=== PATIENT | male | born 1955 | race Caucasian/White ===

== ENCOUNTER 2021-03-12 00:14 | Observation (INO) | payer OTHER, SELFPAY ==
[2021-03-12] VITALS (12 sets, daily range): BP systolic 126–147; BP diastolic 64–92; PULSE 52–66; RESP 16–17; TEMP 36.3–36.8; O2SAT 91–96; BMI 33.3
[2021-03-12] MEDS: enoxaparin 40 mg/0.4 mL Syringe SUBCUT (00:51)
--- NOTE | 2021-03-12 02:09 | P.HP_ITS ---
Providers/Chief Complaint Admitting Physician: Jeanette Roberts MD Primary Care Provider: Dustin Foster Chief Complaint: dizziness History of Present Illness Rory Horner is a 65 year old male who originally presented to [facility] with sudden onset of dizziness around 4 PM. He works in a body shop. He had gotten up from doing some work and went to sit down. About 20 minutes after sitting down he had sudden onset of severe dizziness associated with nausea. He had no vomiting. He did report vision changes described as harder to see things but denied any double vision. He had some pain in the back of his neck at the time. It was not radiating anywhere else. He has had intermittent similar pain without the dizziness previously. Denied any headache. No diffic ulty speaking. Symptoms were better with his eyes closed. Any attempt to get up and walk however was challenging. He ended up calling his to come and get him because he did not think that he could drive his car. When she arrived he asked to come to the hospital because the symptoms were so severe. He has a history of a previous TIA back in 2009 that presented with similar symptoms and lasted about 12 hours. He chronically takes baby aspirin. He has a history of hypertension and tachycardia for which he is on beta-blockade. Denies any recent viral symptoms or upper respiratory/sinus symptoms. No reports of any chest pain. Has not had any difficulty breathing. NIH stroke scale on arrival to outside facility was 0. CT of the head without contrast was interpreted by radiology as no evidence of acute intracranial hemorrhage, no CT evidence of acute transcortical infarct however it did describe an area of low density in the right caudate nucleus that could represent an acute lacunar type infarction. Patient was seen by teleneurology at [facility]. Their interpretation was possible chronic lacunar infarct rather than acute. Records indicate a positive Jorge- Hallpike test and no focal neurological deficits. Recommendation was for MRI of brain without contrast. Attempts were made to transfer the patient to [facility] for MRI without success. Patient requested transfer here. Patient continued to be dizzy per ER physician. He had not received any treatment specifically for dizziness given concern for possible neurologic etiology with sudden onset of symptoms. Upon arrival here, patient symptoms have almost resolved although he continues to have mild degree of dizziness. No current vision changes. No other neurological symptoms to speak of. If he is lying down in bed or even moving around in bed he is okay at the moment. He denied any swallowing difficulties. He takes his amlodipine and atenolol chronically. States that he is on atenolol for chronic tachycardia. Does not recall having had issues with a low heart rate which have been noted here. His mother had a large stroke. He does not currently smoke. Review of Systems Const: Denies: fever(s) or chills Eyes: Reports: change in vision, blurry vision and other (not double vision); Denies: photophobia ENMT: Denies: throat pain or nasal congestion Card: Denies: chest pain, palpitations or edema Resp: Denies: dyspnea or productive cough GI: Denies: nausea, vomiting, diarrhea, constipation, hematochezia or melena : Reports: urinary hesitancy, change in urine stream (chronically slow stream, may be a bit worse than usual) and other (nocturia x 2) Musc: Reports: neck pain (transiently) Skin/Breast: Reports: sores (left arm from sql database developer, stitches recently removed); Denies: rash Neuro: Reports: lack of coordination, difficulty walking, dizziness and vertigo; Denies: headache(s), numbness in extremities, weakness in extremities, sensory changes, Slurred speech present or difficulty communicating thoughts Psych: Reports: anxiety John/Lymph: Denies: easy bruising or easy bleeding Medications/Allergies Home Medications Medication Instructions Recorded Confirmed Last Taken Type amlodipine 10 mg PO BEDTIME 03/12/21 03/12/21 03/10/21 22:00 History aspirin [Aspir-Low] 81 mg PO DAILY 03/12/21 03/12/21 03/10/21 22:00 History atenolol 50 mg PO BEDTIME 03/12/21 03/12/21 03/10/21 22:00 History citalopram 20 mg PO BEDTIME 03/12/21 03/12/21 03/10/21 22:00 History Allergies Allergy/AdvReac Type Severity Reaction Status Date / Time acetaminophen [From Tylenol] Allergy Unknown Verified 03/12/21 00:35 Additional Medication Information I personally reviewed home medication list. PFSH Acute PFSH: Medical History (Updated 03/12/21 @ 04:29 by Jeanette Roberts MD) Anxiety Hypertension Tachycardia specifics unknown, denies abnormal heart rhythm, just fast , chronically on atenolol Transient ischemic attack (TIA) 2009, about 12 hours of vertigo of sudden onset Surgical History (Updated 03/12/21 @ 04:09 by Jeanette Roberts MD) History of rotator cuff surgery x2 right History of urethrotomy or similar procedure when quite young, for slow urinary stream which remains chronic problem to a degree Hx of elbow surgery x2 left Family History (Updated 03/12/21 @ 04:05 by Jeanette Roberts MD) Mother Stroke Social History (Updated 03/12/21 @ 04:48 by Jeanette Roberts MD) Smoking and tobacco status: former smoker Quit status (tobacco): has quit using tobacco Year quit tobacco: 1982 Former quit date comment: used smokeless tobacco, never smoked Second hand smoke exposure: Yes Alcohol intake: never Substance/Drug Use: never Household members: spouse Marital status: Vitals/I&O/Wt Last Vital Signs Temp 97.7 F 03/12/21 00:37 Pulse 55 L 03/12/21 00:37 Resp 17 03/12/21 00:37 BP 147/92 03/12/21 00:37 Pulse Ox 92 03/12/21 00:37 Weight last 48 hrs Weight 108.363 kg Weight 108.363 kg Physical Exam Narrative: EXAM NARRATIVE: Constitutional: Awake and alert, oriented x3 HEENT: Normocephalic, atraumatic, pupils equally round and reactive to light, no photophobia, no nystagmus, moist mucous membranes Neck: Supple Respiratory: Clear to auscultation bilaterally without any rales rhonchi or wheezes noted Cardiovascular: Regular rate and rhythm Abdomen: Soft, nontender, distended, positive bowel sounds : Deferred Extremities: No pitting edema Skin: Scab over wound to left arm intact, no significant bruising noted Neuro: Face symmetric, speech clear, handgrip equal, mild dizziness with position change/head turn, no decreased areas of sensation detected, length equal both lower extremities, gait not currently assessed Psych: Normal affect Data Other data: Labs: From [facility] are as follows: White count 5.9, hemoglobin 14.6, platelet count 92 Sodium 139, potassium 3.7, chloride 102, CO2 27, BUN/creatinine 18/0.9, calcium 9.2, glucose 113, albumin 4.7, total bilirubin 0.5, alkaline phosphatase 83, AST 31, ALT 38, magnesium 2.1 Total cholesterol in a nonfasting specimen 130, triglycerides 242, HDL 33, LDL 49 [id number] blood sugar was 110 Urinalysis showed a specific gravity of 1.020, pH 6.5, negative leukocyte esterase and nitrites, negative protein, glucose, ketones Radiological studies: From [facility] are as follows: Chest x-ray with no acute cardiopulmonary abnormality CT of the head without contrast showed ventricles and subarachnoid spaces normal in size and configuration. There is no midline shift or mass-effect. No evidence of acute intracranial hemorrhage or extra-axial fluid collection. Age indeterminate possibly acute small lacunar type infarct of the right caudate nucleus was noted. Rosa-white matter interfaces were maintained without CT evidence of acute transcortical infarction. Basilar cisterns were patent. Mastoid air cells were well aerated and visualized paranasal sinuses were well aerated. EKG: From [facility] showed normal sinus rhythm at 61 bpm without any acute ST segment or T wave changes noted per my personal interpretation Prior or outside records reviewed: Facility records were reviewed in full including teleneurology telestroke phone consultation where Dr. Parmjit Mcnamara recommended an MRI of the brain without contrast for this patient. A&P Assessment and plan (1) TIA (transient ischemic attack): Current working diagnosis based on history and sudden onset of symptoms combined with abnormalities on imaging thus far. Patient was seen by teleneurology at outside facility who requested further radiological evaluation with MR. Status: Acute (2) Vertigo: Outside records indicate positive Salem-Hallpike maneuver which could go along with benign vertigo process. The sudden onset of symptoms not associated directly with position changes however is concerned. Last time he had similar symptoms it was felt to be neurologic in nature back in 2009. He has not received any focused treatment for vertiginous symptoms including no fluids, no meclizine, no benzodiazepines or steroids at outside facility. Status: Acute (3) Bradycardia: Is chronically on atenolol 50 mg taken at bedtime. He did not have a dose this evening. No recent change to dosages. Is on atenolol due to a history of tachycardia, other details regarding tachycardia not known. Status: Acute (4) Hypertension: Chronically on amlodipine in addition to the atenolol he takes Status: Chronic Qualifiers: Hypertension type: essential hypertension Qualified Code(s): I10 - Essential (primary) hypertension (5) Anxiety: Chronically on citalopram Status: Chronic Additional A&P Information Low platelets on outside labs Observation admission Continue serial neuro exams IV fluids Check orthostatic vital signs Hold home amlodipine currently to allow for permissive hypertension in the event that this is determined to be more vascular in nature Currently hold and plan to decrease home atenolol (from 50 mg to 25 mg daily) secondary to bradycardia Telemetry MRI as recommended by neurology and will go on and also get MRA of the head Will provide Xanax 0.5 mg p.o. x1 dose 30 minutes prior to procedure Check carotid ultrasound and echocardiogram Recheck platelets and get INR For now continue aspirin therapy, consider additional antiplatelet therapy upon discharge pending results of above PT and OT evaluations Regular consistency diet as no abnormalities on bedside swallowing exam IVFs times one liter Continue home citalopram DVT prophylaxis: lovenox Plans, findings and concerns discussed with patient and he was given an opportunity to ask questions. Anticipated Disposition: home Code Status: full Attestations Medical Necessity Statement*: Currently anticipate a stay less than two midnights in a patient presenting with acute onset vertigo/dizziness with an abnormal noncontrasted CT of the head. He does have some bradycardia and elevation in specific gravity. Symptoms could be indicative of benign vertigo but he has a prior history of TIA symptoms presenting similarly, known history of hypertension and an unclear tachycardia history for which she has been treated with beta-blockade along with a family history of stroke in his mother. Other issues and plans as noted above. Merits further evaluation acutely as indicated. Coding Level of Care Code Acute Pl[employer] Frame Inserter for Dayan Fang Diagnoses TIA (transient ischemic attack) G45.9 Vertigo R42 Bradycardia R00.1 Hypertension I10 Hypertension type: essential hypertension Anxiety F41.9
[2021-03-12] MEDS: aspirin 81 mg EC Tablet PO (04:08)
[2021-03-12] MEDS: citalopram 20 mg Tablet PO (04:08)
--- NOTE | 2021-03-12 04:24 | PC.NURSE ---
preformed bedside swallow test - no noted trouble swallowing, no delayed cough, no drooling. After test, pt swallowed whole pills with none of the above issues.
[2021-03-12] MEDS: sodium chlor 0.9% + KCl 20 mEq 20 MEQ/1,000 ML BAG 75 MEQ IV (05:02)
[2021-03-12 05:43] LABS: Basophils % 0.4 %; Eosinophils % 0.5 %; Hematocrit 42.5 % (42.0-52.0); Hemoglobin 14.4 g/dL (11.7-16.6); Lymphocytes # 1.8 10^3/uL (0.8-4.8); Lymphocytes % 32.3 %; Mean Corpuscular HGB Conc 33.9 g/dL (30.0-36.0); Mean Corpuscular Volume 97.5 fL (80-94); Mean Platelet Volume 10.9 fL (7.4-10.4); Monocytes # 1.8 10^3/uL (0.2-0.9); Monocytes % 31.9 %; Neutrophils # 1.86 10^3/uL (1.8-7.7); Neutrophils % 32.6 %; Nucleated Red Blood Cells % 0 %; Platelet Count 102 10^3/cmm (130-400); Red Blood Count 4.36 10^6/uL (4.1-5.3); Red Cell Distribution Width 12.2 % (12.1-15.1); White Blood Count 5.7 10^3/uL (4.0-10.0)
[2021-03-12 05:54] LABS: INR 1.17 (0.8-1.2)
--- NOTE | 2021-03-12 06:00 | USCV_ITS ---
Royr Horner Age: 65 Gender: M : 1955 Exam Date: 03/12/2021 05:52 Ordering Phys: Jeanette Roberts MD Technologist: Nelly Sinclair [place] [facility] [place] CVA BP: 147 / 92 HR: 50 Rhythm: Sinus Technical Quality: Adequate MEASUREMENTS (Male / Female) Normal Values 2D ECHO LV Diastolic Diameter PLAX 5.3 cm 4.2 - 5.9 / 3.9 - 5.3 cm LV Systolic Diameter PLAX 3.6 cm LV Chamber Size 3.8 cm IVS Diastolic Thickness 1.1 cm 0.6 - 1.0 / 0.6 - 0.9 cm IVS Systolic Thickness 1.7 cm LVPW Diastolic Thickness 1.3 cm 0.6 - 1.0 / 0.6 - 0.9 cm LVPW Systolic Thickness 1.7 cm RV Chamber Size 2.9 cm LVOT Diameter 2.1 cm LV Ejection Fraction 2D Teich 60.4 % LV Ejection Fraction MOD 2C 58.3 % LV Ejection Fraction 2C AL 59.3 % LA Diameter 4.3 cm LA Width 2.7 cm LA Height 4.5 cm RA Width 3.2 cm RA Height 3.9 cm Aorta at Sinotubular Diameter 3.3 cm M-MODE LV Diastolic Diameter MM 5.4 cm 4.2 - 5.9 / 3.9 - 5.3 cm LV Systolic Diameter MM 3.8 cm LV Ejection Fraction MM Teich 56.7 % IVS Diastolic Thickness MM 1.6 cm 0.6 - 1.0 / 0.6 - 0.9 cm IVS Systolic Thickness MM 1.4 cm LVPW Diastolic Thickness MM 1.4 cm 0.6 - 1.0 / 0.6 - 0.9 cm LVPW Systolic Thickness MM 2.1 cm RV Diastolic Diameter MM 2.3 cm Aortic Annulus Diameter 3.6 cm LA Ao Ratio MM 1.3 DOPPLER AV Peak Velocity 108.0 cm/s LVOT Peak Velocity 69.0 cm/s AV Area Cont Eq vti 3.0 cm squared AV Area Cont Eq pk 2.2 cm squared MV Area PHT 3.3 cm squared Mitral E to A Ratio 1.1 MV E' Velocity 38.0 cm/s Mitral E to MV E' Ratio 8.3 Mitral E to LV E' Lateral Ratio 9.4 Mitral E to LV E' Septal Ratio 7.6 TR Peak Velocity 172.2 cm/s TR Peak Gradient 11.9 mmHg TR Mean Velocity 128.2 cm/s TR Mean Gradient 7.3 mmHg TR Velocity Time Integral 52.8 cm TV Peak E Velocity 65.0 cm/s Right Atrial Pressure 3.0 mmHg Pulmonary Artery Systolic Pressu 14.9 mmHg PV Peak Velocity 56.0 cm/s RV Acceleration Time 0.2 s RV Ejection Time 0.4 s RV AcT/ET 0.5 FINDINGS Left Ventricle Normal left ventricular size, systolic function and wall thickness, with no diagnostic regional wall motion abnormalities. Left ventricular ejection fraction is estimated at 55-60 %. Grade II diastolic dysfunction, moderately elevated filling pressures. Right Ventricle Right ventricle not well visualized. Probably normal right ventricular systolic function. Right ventricular systolic pressure 15 mmHg. Right Atrium Right atrium not well visualized. Left Atrium Normal left atrial size. Mitral Valve Structurally normal mitral valve. No mitral valve stenosis. Trace mitral valve regurgitation. Aortic Valve Structurally normal trileaflet aortic valve. No aortic valve stenosis. No aortic valve regurgitation. Tricuspid Valve Structurally normal tricuspid valve. Pulmonic Valve Structurally normal pulmonic valve. No pulmonary valve stenosis. Trace pulmonary valve regurgitation. Pericardium No pericardial effusion. Aorta Normal size aortic root and proximal ascending aorta. CONCLUSIONS 1. This is a technically difficult study with foreshortened apical windows. 2. Normal left ventricular size, systolic function and wall thickness, with no diagnostic regional wall motion abnormalities. Left ventricular ejection fraction is estimated at 55-60 %. Grade II diastolic dysfunction, moderately elevated filling pressures. 3. Probably normal right ventricular systolic function. 4. Normal pulmonary artery pressure. 5. No prior similar studies to compare. Tania Mcghee MD (Electronically Signed) Final Date: 12 March 2021 13:54 S
--- NOTE | 2021-03-12 06:00 | MR_ITS ---
WS: [id number] MRI BRAIN WITH AND WITHOUT CONTRAST HISTORY: dizziness, abnormal ct head COMPARISON: None available. TECHNIQUE: Multiplanar imaging performed through the brain with MultiHance 20 ml's IV. No acute infarcts are seen. Rosa-white matter differentiation is well preserved. There are a few scat tered T2 and FLAIR signal hyperintensities scattered around the ventricles and in the subcortical whi te matter. Distribution is most likely related to microvascular ischemic disease. No hemorrhage. No a cute infarct. No susceptibility artifacts or prior lacunar infarcts. Ventricles and extra-axial spaces are normal. Clivus and pituitary gland are normal. Visualized posterior fossa and brainstem are also normal. Postcontrast images are negative for masses or vascular malformations. Dural venous sinuses are normal. Paranasal sinuses: Small mucous retention cyst in the RIGHT maxillary sinus. No air-fluid levels. Chung y mild mucoperiosteal thickening throughout the remaining sinuses. Mastoid air cells: Normal. Calvarium and scalp: Normal. MR/MR head wo/w con [id number] IMPRESSION: 1. No acute infarct or hemorrhage. 2. Mild chronic microvascular ischemic type changes in the periventricular and subcortical white matter. 3. No enhancing masses.
--- NOTE | 2021-03-12 06:00 | MR_ITS ---
WS: [id number] MRA ANGIOGRAPHY [place] OF [place] HISTORY: dizziness, abnormal ct head COMPARISON: None available. TECHNIQUE: 3-D MR angiography is performed of the [place] of [place]. All images are reviewed including source images. Distal vertebral arteries are small caliber. Occluded distal LEFT vertebral artery versus variant pat tern. Basilar artery is normal. Posterior cerebral arteries are normal caliber. Posterior communicati ng arteries are both patent. Intracranial portion of the internal carotid arteries are normal course and caliber. No significant a therosclerosis, stenosis or aneurysm identified. Middle and anterior cerebral arteries are both paten t with no significant disease. Anterior communicating artery is also normal. MR/MR angio head wo con [id number] IMPRESSION: 1. No aneurysms or significant atherosclerotic plaque. 2. 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 RIGHT vertebral artery is mildly dominant but also small caliber.
--- NOTE | 2021-03-12 06:00 | USCV_ITS ---
Rory Horner Age: 65 Gender: M : 1955 Exam Date: 03/12/2021 06:13 Ordering Phys: Jeanette Roberts MD Technologist: Nelly Sinclair Exam Location: [facility] – [place] Indication: DIZZINESS AND ABN CT Risk Factors: Unknown Previous Vascular Surgery: None Right Brachial BP: / Left Brachial BP: / Right Left Velocity (cm/s) Spectral Plaque Velocity (cm/s) Spectral Plaque Syst/Diast Broadening Syst/Diast Broadening 81.60/ 16.50 Prox CCA 64.90 / 18.30 44.70/ 14.70 Mid CCA 42.00 / 9.20 34.10/ 14.10 Distal CCA 49.70 / 18.30 42.30/ 16.50 Prox ICA 31.10 / 16.50 38.80/ 14.10 Mid ICA 48.20 / 20.50 48.20/ 22.30 Distal ICA 61.50 / 25.80 55.20 ECA 72.70 1.08 ICA/CCA 1.46 Antegrade Vertebral Antegrade 31.70/ 11.20 cm/s 17.80/ 6.90 cm/s Bi Subclavian Bi 92.40 118.1 0 FINDINGS Comparison: none available. No significant elevation of systolic or diastolic velocities. Waveforms are normal. Mild bilateral atherosclerosis. CONCLUSIONS Bilateral ICA stenosis less than 50%. Dr. Sita Spear DO (Electronically Signed) Final Date: 12 March 2021 09:39 S
[2021-03-12 06:02] LABS: Estmated Average Glucose 117; Hemoglobin A1C 5.7 % (4.0-6.0)
[2021-03-12 06:05] LABS: Chol HDL Ratio 4.59 mg/dL (1.0-5.00); Cholesterol 133 mg/dL (0-200); HDL Cholesterol 29 mg/dL (60-100); LDL Cholesterol Calculated 62 mg/dL (50-129); LDL HDL Ratio 2.14 RATIO (0.00-3.22); Triglycerides 208 mg/dL (0-150)
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
== END 2021-03-12 16:22 | disposition home or self-care (01) ==
PROVIDERS: Admitting Provider Hospitalist; PCP Physician Assistant Medical; Visit Provider Internal Medicine
DX: G45.9 Transient cerebral ischemic attack, unspecified (principal); I65.23 Occlusion and stenosis of bilateral carotid arteries; R42 Dizziness and giddiness; R00.1 Bradycardia, unspecified; I10 Essential (primary) hypertension; F41.9 Anxiety disorder, unspecified; Z87.891 Personal history of nicotine dependence; Z82.3 Family history of stroke
CPT/HCPCS: 36415; 70544; 70553; 80061; 83036; 85025; 85610; 93306; 93880; 96372; 97161; 97165; A9577; G0378; G0379; J1650

== ENCOUNTER → 2021-04-03 08:35 | Outpatient (BNVA) | payer OTHER, SELFPAY | PROVIDERS: PCP Physician Assistant Medical; Referring Provider Hospitalist; Visit Provider Nurse Practitioner | DX: I99.8 Other disorder of circulatory system (principal); R42 Dizziness and giddiness | CPT/HCPCS: 99204 ==

== ENCOUNTER 2021-04-12 07:48 | Outpatient (CLI) | payer OTHER, SELFPAY ==
--- NOTE | 2021-04-12 08:00 | CT_ITS ---
WS: [id number] CTA HEAD AND NECK TECHNIQUE: Contrast enhanced CTA of the head and neck with coronal and sagittal reformatted images an d maximum intensity projection (MIP) images. NASCET criteria utilized. CLINICAL INFORMATION: I99.8 - Other disorder of circulatory system COMPARISON: MRI March 12, 2021 DLP: 2361.[address] scans at [facility] use at least one of these dose optimization techniques: automat ed exposure control; mA and/or kV adjustment per patient size (includes targeted exams where dose is matched to clinical indication); or iterative reconstruction. FINDINGS: No evidence of intracranial hemorrhage or mass effect. Ventricular system and basal cistern s are patent. Mild small vessel changes. Moderate parenchymal volume loss. Mild mucosal thickening in the paranasal sinuses. Mastoid air cells well aerated. Normal visualized posterior nasopharynx. RIGHT: Right common carotid artery is patent. No significant right ICA stenosis. ICA is patent to the skull base. LEFT: Left common carotid artery is patent. No significant left ICA stenosis. Left ICA is patent to t he skull base. INTRACRANIAL CTA: Right dominant vertebral artery. Smaller but patent left vertebral artery partially ends in PICA. Hyp oplastic basilar artery which is patent. Anterior dominant circulation. Robust bilateral posterior co mmunicating arteries with anterior dominant circulation. Patent anterior communicating artery. Normal vascularity to the PHILLIP and MCA territories bilaterally. No evidence of proximal flow limiting stenosis or aneurysm. Normal posterior nasopharynx. Normal parapharyngeal fat. Tortuous right subclavian artery which is pa tent. Left subclavian artery is patent. CT/CT angio headneck* 08409/51055 IMPRESSION: 1. No significant ICA stenosis bilaterally. Both ICAs are patent to the skull base. 2. Right dominant vertebral artery. Smaller but patent left vertebral artery w hich partially ends in PICA. 3. Anterior dominant circulation with patent robust bilateral posterior commun icating arteries. Hypoplastic but patent basilar artery. 4. No evidence of intracranial flow-limiting stenosis or aneurysm.
[2021-04-12] MEDS: iohexol 350 mg/mL 100 mL Btl IV (08:30)
== END 2021-04-12 07:49 | disposition home or self-care (01) ==
LOC: RADWPI 07:53
PROVIDERS: PCP Physician Assistant Medical; Visit Provider Nurse Practitioner
DX: I99.8 Other disorder of circulatory system (principal)
CPT/HCPCS: 70496; 70498; Q9967

== ENCOUNTER → 2021-06-24 13:27 | Outpatient (BNVA) | payer OTHER, SELFPAY | PROVIDERS: PCP Physician Assistant Medical; Visit Provider Nurse Practitioner Family | DX: R30.0 Dysuria (principal) | CPT/HCPCS: 81003 ==

== ENCOUNTER → 2021-07-24 16:53 | Outpatient (BNVA) | payer OTHER, SELFPAY | PROVIDERS: PCP Physician Assistant Medical; Visit Provider Urology | DX: R30.0 Dysuria (principal); N35.919 Unspecified urethral stricture, male, unspecified site | CPT/HCPCS: 81003; 87635 ==

== ENCOUNTER 2021-07-29 13:33 | Day surgery (SDC) | payer OTHER, SELFPAY ==
[2021-07-26 10:47] VITALS: BMI 32.1
[2021-07-29] VITALS (8 sets, daily range): BP systolic 83–152; BP diastolic 55–91; PULSE 65–89; RESP 12–18; TEMP 36.1–36.8; O2SAT 92–98
--- NOTE | 2021-07-29 | SCC_ITS ---
Procedure Done: 1. Cystoscopy with urethral dilation 49.5 seconds of fluoroscopic guidance, for a cumulative dose of 12.0 mGy, was provided to Dr. Rodriguez by the radiology department. C-arm images of the abdomen were saved for the patient's permanent record. [facility]
--- NOTE | 2021-07-29 13:43 | SC_ITS ---
WS: [id number] Exam: C-arm FL for Urology Date/Time of Exam: 07/29/2021 1:43 PM Reason For Exam: Urethral dilation Single AP intraoperative C-arm image of the lower pelvic region submitted for evaluation. The image depicts a cystoscope in place in the urethra with apparent urethral dilatation device and g uidewire. There appears to be radiographic contrast in urinary bladder.
[2021-07-29] MEDS: sodium chloride 0.9% 1,000 ML 30 ML IV (14:08)
--- NOTE | 2021-07-29 14:18 | ANES.PREANE2 ---
Pre-Anesthetic Assessment Pre-Anesthetic Assessment: Height/Weight: Height 1.8 m Weight 104.326 kg Temp Pulse Resp BP Pulse Ox 97 F L 65 18 152/91 94 07/29/21 13:48 07/29/21 13:48 07/29/21 13:48 07/29/21 13:48 07/29/21 13:48 Preop Diagnosis: Cystoscopy, urethral dilation Proposed Procedure: Operation Date: 07/29/21 15:05 Proposed Procedures p Cystoscopy 36886 N35.919(Not Applicable) - Aristides Rodriguez MD s Urethral Dilation(Not Applicable) - Aristides Rodriguez MD Was Beta Jordan taken within 24 hours: N/A Was Clonidine taken within 24 hours: N/A Last intake: Intake Last Liquid Date 07/28/21 Last Liquid Time 22:00 Last Solid Date 07/28/21 Last Solid Time 22:00 Social: Social History: No tobacco Exam: Pre-Anes Outpt Exam: alert, oriented x 3, clear to auscultation bilaterally and regular rate & rhythm Airway: Submandibular: WNL Cervical ROM: WNL MP: 2 History/ROS: No significant history except as noted CV/HEM: CV/HEM: HTN Neuropsych: Neuropsych: Depression Anesthetic Plan: ASA status: 2 Anesthesia: Anesthesia Evaluation and General Risk of > 500 ml blood loss (7ml/kg in children): No Meds/Allergies Current Medications: Current Medications Generic Name Dose Route Start Last Admin Trade Name Freq PRN Reason Stop Dose Admin Sodium Chloride 1,000 mls @ 30 ml s/hr 07/29/21 13:45 07/29/21 14:08 Sodium Chloride 0.9% IV 07/30/21 13:44 30 mls/hr .Q24H WATSON Administration PFSH Anesthesia PFSH: Medical History Anxiety Cerebral atherosclerosis Hypertension Occlusion of left vertebral artery Tachycardia specifics unknown, denies abnormal heart rhythm, just fast , chronically on atenolol TIA (transient ischemic attack) Transient ischemic attack (TIA) 2009, about 12 hours of vertigo of sudden onset Surgical History History of rotator cuff surgery x2 right History of urethrotomy or similar procedure when quite young, for slow urinary stream which remains chronic problem to a degree Hx of elbow surgery x2 left Family History Mother Stroke Social History Quit status (tobacco): has quit using tobacco Year quit tobacco: 1982 Former quit date comment: used smokeless tobacco, never smoked Second hand smoke exposure: Yes Alcohol intake: never Household members: spouse Marital status: Data Anesthesia Cardiac Studies: No Data to Display
--- NOTE | 2021-07-29 14:28 | W.PM.OPSUD ---
Surgery/Procedure H&P Update DATE OF PROCEDURE: July 29, 2021 DATE H&P PERFORMED: 07/24/21 H&P UPDATE INFORMATION: I have reviewed H&P completed within last 30 days, I have examined patient prior to procedure, No changes to prior documentation and H&P is in [facility] EMR on date indicated PREOP DIAGNOSIS: Cystoscopy, urethral dilation PLANNED PROCEDURE: Operation Date: 07/29/21 15:05 Proposed Procedures p Cystoscopy 15382 N35.919(Not Applicable) - Aristides Rodriguez MD s Urethral Dilation(Not Applicable) - Aristides Rodriguez MD
--- NOTE | 2021-07-29 15:15 | W.PM.OPSUD ---
Surgery/Procedure H&P Update DATE OF PROCEDURE: July 29, 2021 DATE H&P PERFORMED: 07/24/21 H&P UPDATE INFORMATION: I have reviewed H&P completed within last 30 days, I have examined patient prior to procedure, No changes to prior documentation and H&P is in [facility] E[place] on date indicated PREOP DIAGNOSIS: Cystoscopy, urethral dilation PLANNED PROCEDURE: Operation Date: 07/29/21 15:05 Proposed Procedures p Cystoscopy 80957 N35.919(Not Applicable) - Aristides Rodriguez MD s Urethral Dilation(Not Applicable) - Aristides Rodriguez MD
--- NOTE | 2021-07-29 15:17 | P.OP_ITS ---
Operative Report Date of procedure: July 29, 2021 Pre-op Diagnosis: Pinpoint urethral stricture Post-op diagnosis: same Procedure Done: 1. Cystoscopy with urethral dilation Pathology: none sent Surgeon: Jennifer Anesthesia: General Brief History: Mr. Horner is a delightful 66-year-old white male who was recently evaluated my office with complaints of Chronic urethral dysuria, slow urinary stream, and a history of approximately age 7 having some sort of urethral blockage requiring s urgical intervention. Cystoscopy in the office revealed some passable large caliber urethral strictures distally but also a very tight pinpoint urethral stricture in the bulbar urethra which was not impassable. It was recommended that we evaluate and dilate under anesthesia. Procedure: After routine preoperative evaluation examination and obtaining of informed consent he was taken to the operating suite on 07/29/2021 where general anesthesia was administered without difficulty after appropriate timeout was performed, SCDs confirmed to be functioning, preoperative antibiotics administered, beta-juan protocol confirmed. Prepped and draped in usual sterile fashion in dorsolithotomy position paying careful attention to avoiding pressure points. 21 Nigerien cystoscope with 30 degree lens was introduced into urethra meatus and advanced into the bulbar urethra without difficulty where the tight urethral stricture was encountered. A flexible tip guidewire was advanced through the pinpoint opening and under fluoroscopic guidance into the bladder. An open-ended ureteral catheter was then advanced over the guidewire and the guidewire removed and contrast was injected into the bladder for confirmation. Wire was then replaced. Catheter removed. A 15 Nigerien by 10 cm balloon was then utilized to dilate the urethra under fluoroscopic guidance to peak pressure of 6 geovanna. That balloon catheter was then removed and a 21 Nigerien by 10 cm balloon was used to redilate the same area. Peak pressure of 6 geovanna. The 21 Nigerien scope would not easily passed through the area and a 17 Nigerien sheath was then tried also unsuccessfully without undue pressure. At this point it was decided to place a Oshea catheter for further passive dilation and a 16 Nigerien coud? tip catheter was converted to ak chin tip catheter advanced over the wire. It was a little bit tight but relatively easy. A small amount of contrast diluted down to about 10% was instilled into the balloon to confirm position and balloon function. It was then drained syringe flushed and the balloon was then reinflated with 10 cc of sterile water. Balloon was snugged to the bladder neck and confirmed to be holding prior to removal of the working guidewire. Catheter was placed to dependent drainage and the procedure was completed. PLANS: 1. Anticipate discharge from outpatient surgery today 2. Follow-up in 7 to 10 days for possible cystoscopy and conversion to a larger catheter for further passive dilation if necessary. 3. Anticipate after adequate healing and passive dilation to initiate SCIC for stricture patency maintenance.
[2021-07-29] MEDS: levofloxacin-dextrose 5 % 500 MG/100 ML PREMIX 100 MG IV (15:56)
[2021-07-29] MEDS: iohexol 300 mg/mL 50 mL Btl (OR ONLY) XX (16:18)
[2021-07-29] MEDS: lidocaine 2% Urojet 20 mL TOPICAL (16:24)
--- NOTE | 2021-07-29 17:29 | ANE.PACU2 ---
Inpatient post-anesthesia follow up: Airway intact: Yes Vital signs: Temperature 97.9 F Pulse Rate 88 Respiratory Rate 16 Blood Pressure 115/74 Pulse Oximetry 96 Oxygen Delivery Me thod Room Air Oxygen Flow Rate Fraction of Inspir ed Oxygen Hydration adequate: Yes Nausea and vomiting: No Pain level: 1 Mental status: Baseline
--- NOTE | 2021-07-29 17:38 | SUR.PHASEII ---
ROTHAMN CARE INSTRUCTIONS GIVEN.
== END 2021-07-29 18:00 | disposition home or self-care (01) ==
PROVIDERS: PCP Physician Assistant Medical; Visit Provider Urology
PROC: 0TJB8ZZ Inspection of Bladder, Via Natural or Artificial Opening Endoscopic (ICD-10-PCS; CPT 52000; principal; 2021-07-29 15:05)
PROC: (CPT 52281; 2021-07-29 15:05)
PROC: (CPT 52281; 2021-07-29 15:05)
DX: N35.919 Unspecified urethral stricture, male, unspecified site (principal); I10 Essential (primary) hypertension; F32.9 Major depressive disorder, single episode, unspecified; F41.9 Anxiety disorder, unspecified; Z86.73 Personal history of transient ischemic attack (TIA), and cerebral infarction without residual deficits; Z82.3 Family history of stroke; Z79.82 Long term (current) use of aspirin; Z87.891 Personal history of nicotine dependence
CPT/HCPCS: 52281; 76000; J1956; J2405; J2704; J3010; J3490; J7030

== ENCOUNTER → 2023-07-29 15:33 | Outpatient (BNVA) | payer MEDICARE, OTHER, SELFPAY | PROVIDERS: PCP Physician Assistant Medical; Visit Provider Specialist | DX: M19.011 Primary osteoarthritis, right shoulder; M75.102 Unspecified rotator cuff tear or rupture of left shoulder, not specified as traumatic; M12.812 Other specific arthropathies, not elsewhere classified, left shoulder | CPT/HCPCS: 73030 ==

== ENCOUNTER 2023-12-30 11:05 | Inpatient (IN) | payer MEDICARE, OTHER, SELFPAY ==
[2023-12-30] VITALS (68 sets, daily range): BP systolic 80–153; BP diastolic 49–106; PULSE 70–99; RESP 13–29; TEMP 36.9; O2SAT 91–96; BMI 27.9; BMI 26.2
--- NOTE | 2023-12-30 11:23 | ECG_ITS ---
[facility] Test Date: 2023-12-30 Pat Name: Rory Horner Department: Room: Gender: Male [employer] Person: : 1955 Requested By: Farzad Gonzales Order Number: [id number] Lisy MD: Keith Plummer M.D. Measurements Intervals [place] Rate: 81 P: 51 MD: 146 QRS: -33 QRSD: 97 T: 60 QT: 399 QTc: 465 Interpretive Statements SINUS RHYTHM LEFT AXIS DEVIATION [QRS AXIS < -30] PATTERN CONSISTENT WITH PULMONARY DISEASE NONSPECIFIC T-WAVE ABNORMALITY No previous ECG available for comparison Electronically Signed On 12-30-2023 23:55:02 CDT by Keith Plummer M.D. [id number]
--- NOTE | 2023-12-30 11:23 | CT_ITS ---
WS: [id number] CT ABDOMEN PELVIS TECHNIQUE: Noncontrast CT of the abdomen and pelvis with coronal and sagittal reformatted images. CLINICAL INFORMATION: Abdominal pain COMPARISON: None. DLP: 657.[address] scans at [facility] use at least one of these dose optimization techniques: automated e xposure control; mA and/or kV adjustment per patient size (includes targeted exams where dose is matc hed to clinical indication); or iterative reconstruction. FINDINGS: Fluid distended small bowel loops LEFT upper quadrant and mid abdomen with induration. Small bowel lo ops in the LEFT upper quadrant measure up to 2.4 cm. Suggestion of central tethering with induration in the mesentery. Area of focal transition to normal caliber small bowel in the LEFT upper quadrant s uspicious for focal adhesion or internal hernia. No evidence of pneumatosis or free air. Lung bases are well aerated. Calcified granuloma LEFT lower lobe. Normal noncontrast liver. Small henry unt of perihepatic ascites. Cholelithiasis with tiny calculus near the cystic duct. No gallbladder wa ll thickening or pericholecystic fluid. Normal GE junction. Splenic granulomas. Adrenal glands are no rmal. LEFT renal cyst measuring 3.3 cm. Small amount of free fluid in the pelvis. Trace perisplenic fluid. Slight fluid in the LEFT paracolic gutter. Mild thickening and induration ab out the splenic flexure colon and LEFT descending colon likely reactive. Adrenal glands are normal. No hydronephrosis. LEFT renal cyst measuring 3.3 cm. Tiny RIGHT renal cyst . Normal caliber abdominal aorta. Mild aortic calcification. Tiny fat-containing umbilical hernia. IMPRESSION: 1. Partial small bowel obstruction with dilated loops of fluid-filled small bowel in the LEFT mid ab domen with surrounding inflammatory change and induration. Central tethering in the edematous mesente ry with area of transition to normal caliber small bowel suspicious for internal hernia or focal adhe mayra. Coronal series 5 image 18. Also see sagittal series 6 image 33. Also axial images series 3 imag e 46 2. Adjacent thickening of the hepatic flexure colon and descending colon likely reactive. 3. Small amount of perihepatic and perisplenic ascites extending to the paracolic gutters. Amount of free fluid in the pelvis. 4. Tiny gallbladder calculus near the cystic duct. No gallbladder wall thickening or pericholecystic fluid. This could be followed up with ultrasound. Notified Farzad Maldonado DO at 12/30/2023 12:57 PM.
--- NOTE | 2023-12-30 11:23 | CT_ITS ---
WS: [id number] CT HEAD TECHNIQUE: Noncontrast CT of the head obtained from the skullbase to the vertex. CLINICAL INFORMATION: Trauma COMPARISON: CTA 04/12/2021 DLP: 1054.[address] scans at [facility] use at least one of these dose optimization techniques: automated e xposure control; mA and/or kV adjustment per patient size (includes targeted exams where dose is matc hed to clinical indication); or iterative reconstruction. FINDINGS: No evidence of intracranial hemorrhage or mass effect. Ventricular system and basal cisterns are ortega nt. Mild small vessel changes with mild parenchymal volume loss. No extra-axial fluid collections. No evidence of mass or mass effect. Paranasal sinuses and mastoid air cells are well aerated. .Soft tissue edema dorsal calvarium with la ceration. No visualized fractures. IMPRESSION: 1. No evidence of intracranial hemorrhage or mass effect. 2. No acute intracranial findings.
[2023-12-30 11:52] LABS: Basophils % 0.1 %; Hematocrit 43.4 % (37-53); Lymphocytes # 0.8 10^3/uL (0.8-4.8); Lymphocytes % 10.7 %; Mean Corpuscular HGB Conc 33.6 g/dL (30-55); Mean Corpuscular Hemoglobin 33.5 pg (27-33); Mean Corpuscular Volume 99.5 fl (82-101); Mean Platelet Volume 11.1 fL (7.4-10.4); Monocytes # 2.6 10^3/uL (0.2-0.9); Monocytes % 36.5 %; Neutrophils # 3.72 10^3/uL (1.8-7.7); Neutrophils % 51.6 %; Nucleated Red Blood Cells % 0 %; Platelet Count 114 10^3/cmm (157-399); Red Blood Count 4.36 10^6/uL (3.85-5.65); Red Cell Distribution Width 12.7 % (12.1-15.1); White Blood Count 7.21 10^3/uL (3.29-11.43)
[2023-12-30 12:06] LABS: Troponin(5th) Baseline 9 ng/L (0-15)
[2023-12-30 12:07] LABS: Alanine Aminotransferase 14 U/L (0-41); Albumin Level 4.7 g/dL (3.5-5.2); Alkaline Phosphatase 120 U/L (40-130); Anion Gap 15.8 (5-19); Aspartate Amino Transferase 21 U/L (0-40); Blood Urea Nitrogen 9 mg/dL (8-23); Calcium 9.7 mg/dL (8.5-10.5); Carbon Dioxide 27 mmol/L (22-29); Chloride 102 mmol/L (98-107); Creatinine Clr Calc Pharmacy 101.7248; Globulin 3.2 g/dL (1.3-4.6); Glomerular Filtration Rate 112.8 mL/min (90-130); Glucose 121 mg/dL (65-115); Osmolality Calculated 292 mOsm/kg (285-295); Potassium 3.8 mmol/L (3.5-5.1); Sodium 141 mmol/L (136-145); Total Bilirubin 1.1 mg/dL (0.15-1.2); Total Protein 7.9 g/dL (6.6-8.7)
--- NOTE | 2023-12-30 12:32 | ED_ITS ---
HPI - Abdominal Pain 2 General: Chief Complaint: Abdominal Pain Stated Complaint: Syncope, ABD Pain Time Seen by Provider: 12/30/23 11:22 Source: patient Mode of arrival: ambulatory History of Present Illness: 68-year-old male presents emergency room planing of upper abdominal pain that began this morning around 3 AM was kept him up since then. He got sick to his stomach he got up to go to the restroom he thought he was going to vomit he passed out has a laceration on the crown of his head. He is not on any anticoagulants. No chest pain or shortness of breath associated with this MD elicited complaint: abdominal pain Onset (ago): minute(s) Location: Epigastric and RUQ Quality: aching Exacerbating factors: nothing Relieving factors: nothing Associated Symptoms: Denies anorexia, belching, bloating, change in bowel habits, change in stool character, chills, coffee ground emesis, constipation, GI cramping, diarrhea, dyspepsia, dysuria, excessive flatus, fever(s), heartburn, hematochezia, hematuria, hematemesis, fecal incontinence, loose stools, melena, nausea, poor appetite, syncope and vomiting Review of Systems 2 Const: Denies: fever(s) or chills Card: Denies: chest pain or syncope Resp: Denies: dyspnea GI: Denies: abdominal pain, nausea, vomiting, hematemesis, coffee ground emesis, heartburn, diarrhea, constipation, bloating, GI cramping, belching, excessive flatus, fecal incontinence, change in bowel habits, change in stool character, hematochezia or melena : Denies: dysuria, urinary frequency, urinary urgency or hematuria Musc: Denies: neck pain or back pain Skin/Breast: Denies: rash PFSH ED 2 PFSH: Medical History (Updated 01/08/24 @ 14:32 by Farzad Maldonado DO) Occlusion of left vertebral artery Cerebral atherosclerosis Anxiety TIA (transient ischemic attack) Tachycardia specifics unknown, denies abnormal heart rhythm, just fast , chronically on atenolol Hypertension Transient ischemic attack (TIA) 2009, about 12 hours of vertigo of sudden onset Surgical History History of urethrotomy or similar procedure when quite young, for slow urinary stream which remains chronic problem to a degree History of rotator cuff surgery x2 right Hx of elbow surgery x2 left Family History Mother Stroke Social History Smoking and tobacco/nicotine status: former use of tobacco/nicotine Quit status (tobacco/nicotine): has quit using Year quit tobacco: 1982 Former quit date comment: used smokeless tobacco, never smoked Second hand smoke exposure: Yes Alcohol intake: never Substance/Drug Use: never Household members: spouse Marital status: Current occupational status: employed Physical Exam 2 Const: GENERAL APPEARANCE: cooperative and comfortable O RIENTATION/CONSCIOUSNESS: Yes awake, Yes oriented to person, Yes oriented to place and Yes oriented to time HENMT: COMMON NORMALS: normocephalic, atraumatic and hearing grossly normal bilaterally HEAD & SCALP: normocephalic and atraumatic Resp: COMMON NORMALS: normal respiratory effort, No retractions, No use of accessory muscles and clear to auscultation bilaterally AUSCULTATION: clear to auscultation bilaterally Cardio: COMMON NORMALS: regular rate, regular rhythm and No murmurs present (Cardio) RATE: regular rate RHYTHM: regular rhythm GI: COMMON NORMALS: No hepatosplenomegaly present AUSCULTATION: Yes normoactive bowel sounds PALPATION: Yes Tenderness to palpation present (GI) (epigastric), No Guarding due to palpation present (GI) and Yes No hepatosplenomegaly present Extremity: COMMON NORMALS: normal to inspection, capillary refill normal, no clubbing, cyanosis or edema, no calf tenderness and no pedal edema Neuro: SENSORIUM/ORIENTATION: Yes oriented to person, Yes oriented to place and Yes oriented to time Skin: COMMON NORMALS: no rashes or lesions noted GENERAL SKIN EXAM: no rashes or lesions noted Procedures Laceration Laceration 1: Site: scalp Size (cm): 4 Description: irregular Depth: simple, single layer Local Anesthetic: lidocaine 1% and with epi Amount of anesthesia used (mL): 2 Pre-repair: wound explored and irrigated extensively Size (cm): other (Nancie) Course 2 Vital Signs: Vital signs: Vital Signs Temperature 98.0 F 01/02/24 12:38 Pulse Rate 64 01/02/24 12:38 Respiratory Rate 18 01/02/24 12:38 Blood Pressure 131/83 01/02/24 12:38 Pulse Oximetry 93 01/02/24 12:38 Oxygen Delivery Me thod Room Air 01/02/24 08:00 MDM - Abdominal Pain Medical Decision Making CT report is partial small bowel obstruction. Will admit discussed with surgery orders written. Scalp wound repaired Medical Records I reviewed the patient's medical records. Lab Data I reviewed the patient's lab results. 01/02/24 03:00 01/02/24 03:00 Labs/Radiology: Laboratory Results WBC 7.21 10^3/uL (3.29-11.43) 12/30/23 11:42 RBC 4.36 10^6/uL (3.85-5.65) 12/30/23 11:42 Hgb 14.60 g/dL (11.27-16.99) 12/30/23 11:42 Hct 43.4 % (37-53) 12/30/23 11:42 MCV 99.5 fl (82-101) 12/30/23 11:42 MCH 33.5 pg (27-33) H 12/30/23 11:42 MCHC 33.6 g/dL (30-55) 12/30/23 11:42 RDW 12.7 % (12.1-15.1) 12/30/23 11:42 Plt Count 114 10^3/cmm (157-399) L 12/30/23 11:42 MPV 11.1 fL (7.4-10.4) H 12/30/23 11:42 Neut % (Auto) 51.6 % 12/30/23 11:42 Lymph % (Auto) 10.7 % 12/30/23 11:42 [place] % (Auto) 36.5 % 12/30/23 11:42 Eos % (Auto) 0.0 % 12/30/23 11:42 Baso % (Auto) 0.1 % 12/30/23 11:42 Neut # (Auto) 3.72 10^3/uL (1.8-7.7) 12/30/23 11:42 Lymph # (Auto) 0.8 10^3/uL (0.8-4.8) 12/30/23 11:42 [place] # (Auto) 2.6 10^3/uL (0.2-0.9) H 12/30/23 11:42 Eos # (Auto) 0.0 10^3/uL (0.0-0.8) 12/30/23 11:42 Baso # (Auto) 0.0 10^3/uL (0.0-0.1) 12/30/23 11:42 Nucleated RBC % (auto) 0 % 12/30/23 11:42 Nucleated RBCs # 0.0 /100WBC 12/30/23 11:42 Sodium 141 mmol/L (136-145) 12/30/23 11:42 Potassium 3.8 mmol/L (3.5-5.1) 12/30/23 11:42 Chloride 102 mmol/L (98-107) 12/30/23 11:42 Carbon Dioxide 27 mmol/L (22-29) 12/30/23 11:42 Anion Gap 15.8 (5-19) 12/30/23 11:42 BUN 9 mg/dL (8-23) 12/30/23 11:42 Creatinine 0.7 mg/dL (0.7-1.2) 12/30/23 11:42 GFR Calculation 112.8 mL/min (90-130) 12/30/23 11:42 Glucose 121 mg/dL (65-115) H 12/30/23 11:42 Calculated Osmolality 292 mOsm/kg (285-295) 12/30/23 11:42 Lactic Acid 1.7 mmol/L (0.5-2.2) 12/30/23 11:42 Calcium 9.7 mg/dL (8.5-10.5) 12/30/23 11:42 Total Bilirubin 1.1 mg/dL (0.15-1.2) 12/30/23 11:42 AST 21 U/L (0-40) 12/30/23 11:42 ALT 14 U/L (0-41) 12/30/23 11:42 Alkaline Phosphatase 120 U/L (40-130) 12/30/23 11:42 Troponin T Baseline 9 ng/L (0-15) 12/30/23 11:42 Troponin T 120 Minute 7.26 ng/L (0-15) 12/30/23 14:28 Delta Troponin T -1.74 ABS# (0-10) L 12/30/23 14:28 Total Protein 7.9 g/dL (6.6-8.7) 12/30/23 11:42 Albumin 4.7 g/dL (3.5-5.2) 12/30/23 11:42 Globulin 3.2 g/dL (1.3-4.6) 12/30/23 11:42 All radiology interpretation(s) finalized by discharge Discharge Plan Discharge Patient Disposition: Admitted As Inpatient Admit Provider: Scott Abdalla Clinical Impression: Partial obstruction of small intestine, Laceration of scalp Condition: Stable Discharge Diet: Advance as tolerated Discharge Activity: Resume usual activity Coding Level of Care Code ED Hat Mender for Dayan Fang
--- NOTE | 2023-12-30 13:14 | ECG_ITS ---
[facility] Test Date: 2023-12-30 Pat Name: Rory Horner Department: Room: Gender: Male Oxygen Equipment Aide: : 1955 Requested By: Farzad Gonzales Order Number: [id number] Lisy MD: Keith Plummer M.D. Measurements Intervals [place] Rate: 77 P: 25 [place]: 147 QRS: -42 QRSD: 97 T: 42 QT: 390 QTc: 442 Interpretive Statements SINUS RHYTHM LEFT AXIS DEVIATION [QRS AXIS < -30] PATTERN CONSISTENT WITH PULMONARY DISEASE NONSPECIFIC T-WAVE ABNORMALITY Compared to ECG 12/30/2023 11:12:04 No significant changes Electronically Signed On 12-31-2023 0:04:58 CDT by Keith Plummer M.D. [id number]
[2023-12-30 13:24] LABS: Lactic Sepsis W/Reflex 1.7 mmol/L (0.5-2.2)
--- NOTE | 2023-12-30 13:41 | XR_ITS ---
WS: [id number] Exam: XR chest 1V portable [id number] Date/Time of Exam: 12/30/2023 1:45 PM Reason For Exam: NG TUBE PLACEMENT Limited chest radiograph for NG tube placement. An NG tube has been placed and ends in the body the stomach. LEFT lung and visualized RIGHT lung are clear. The lateral RIGHT lung is out of the [id number]. Unremarkable cardiomediastinal silhouette. Visualized bony structures are intact. IMPRESSION: 1. NG tube ending in the body the stomach. 2. No acute cardiopulmonary process identified based on this limited image.
[2023-12-30] MEDS: piperacillin-tazobactam 3.375 GM in sodium chloride 0.9% (plus) 50 ML IV (14:29)
[2023-12-30 15:16] LABS: Troponin 5 2HR 7.26 ng/L (0-15)
[2023-12-30 15:18] LABS: Troponin 5 2HR Delta -1.74 ABS# (0-10)
[2023-12-30] MEDS: D5-NS 0.45% + KCL 20 mEq 20 MEQ/1,000 ML BAG 125 MEQ IV (16:57)
[2023-12-30] MEDS: morphine 4 mg/mL SDV 1 mL IVP ×2 (17:48→22:33)
--- NOTE | 2023-12-30 18:15 | ECG_ITS ---
[facility] Test Date: 2023-12-30 Pat Name: Rory Horner Department: Room: 263 Gender: Male Inseamer: : 1955 Requested By: Farzad Gonzales Order Number: [id number] Lisy MD: Ketih Plummer M.D. Measurements Intervals [place] Rate: 72 P: 56 [place]: 146 QRS: -34 QRSD: 102 T: 44 QT: 411 QTc: 450 Interpretive Statements SINUS RHYTHM LEFT AXIS DEVIATION [QRS AXIS < -30] NONSPECIFIC T-WAVE ABNORMALITY Compared to ECG 12/30/2023 13:14:29 No significant changes Electronically Signed On 12-31-2023 0:07:42 CDT by Keith Plummer M.D. [id number]
[2023-12-30 20:19] LABS: Troponin 5 6HR 7.81 ng/L (0-15)
[2023-12-30 20:22] LABS: Troponin 5 6HR Delta -1.19 ng/L (0-12)
[2023-12-30] MEDS: ondansetron 2 mg/ML SDV 2 mL 4 MG IVP (22:33)
[2023-12-31] VITALS (11 sets, daily range): BP systolic 104–134; BP diastolic 68–89; PULSE 67–81; RESP 16–18; TEMP 36.3–37.1; O2SAT 90–91
[2023-12-31] MEDS: D5-NS 0.45% + KCL 20 mEq 20 MEQ/1,000 ML BAG 125 MEQ IV ×3 (01:50→16:39)
[2023-12-31 05:36] LABS: Basophils % 0.1 %; Eosinophils % 0.1 %; Hematocrit 40.2 % (37-53); Lymphocytes # 1.1 10^3/uL (0.8-4.8); Lymphocytes % 10.3 %; Mean Corpuscular HGB Conc 32.8 g/dL (30-55); Mean Corpuscular Volume 100.5 fl (82-101); Mean Platelet Volume 11.2 fL (7.4-10.4); Monocytes # 5.4 10^3/uL (0.2-0.9); Neutrophils # 4.35 10^3/uL (1.8-7.7); Neutrophils % 39.2 %; Nucleated Red Blood Cells % 0 %; Platelet Count 119 10^3/cmm (157-399); Red Cell Distribution Width 13.1 % (12.1-15.1); White Blood Count 11.07 10^3/uL (3.29-11.43)
[2023-12-31 05:52] LABS: Alanine Aminotransferase 10 U/L (0-41); Albumin Level 3.8 g/dL (3.5-5.2); Alkaline Phosphatase 97 U/L (40-130); Anion Gap 12.9 (5-19); Aspartate Amino Transferase 17 U/L (0-40); Blood Urea Nitrogen 12 mg/dL (8-23); Carbon Dioxide 27 mmol/L (22-29); Chloride 101 mmol/L (98-107); Creatinine Clr Calc Pharmacy 103.1185; Glomerular Filtration Rate 96.7 mL/min (90-130); Glucose 130 mg/dL (65-115); Osmolality Calculated 286 mOsm/kg (285-295); Potassium 3.9 mmol/L (3.5-5.1); Sodium 137 mmol/L (136-145); Total Bilirubin 0.8 mg/dL (0.15-1.2); Total Protein 6.8 g/dL (6.6-8.7)
--- NOTE | 2023-12-31 06:00 | XR_ITS ---
WS: [id number] Exam: XR acute abdomen series [id number] Date/Time of Exam: 12/31/2023 10:47 AM Reason For Exam: Small bowel obstruction AP chest. The lungs are fully expanded and clear. Normal cardiomediastinal silhouette. An enteric tub e is noted in the fundus of the stomach. Bony structures are intact. Flat and erect abdomen. Numerous dilated small bowel loops in the upper abdomen suggesting small flora l obstruction. No free air. No sign of organ enlargement. Moderate amount of stool in the LEFT colon. Bony structures appear normal. IMPRESSION1. Enteric tube in the stomach in satisfactory position. 2. Dilated small bowel loops in the mid and upper abdomen suggesting early small bowel obstruction. 3. No acute cardiopulmonary finding.
[2023-12-31] MEDS: morphine 4 mg/mL SDV 1 mL IVP ×2 (06:20→16:38)
--- NOTE | 2023-12-31 18:34 | P.HP_ITS ---
Providers/Chief Complaint 2 Admitting Physician: Scott Abdalla DO Primary Care Provider: Dustin Foster Chief Complaint: Syncope, ABD Pain History of Present Illness Rory Horner is a 68 year old male who presents to the hospital with 1 day history of abdominal pain and diarrhea. He reports that he is having right- sided abdominal pain which is crampy and intermittent. Palpation makes pain worse. Nothing makes pain better. The pain does not radiate. He denies any nausea or emesis. Denies any hematochezia and/or melena. He reports that he is still passing flatus and had a small bowel movement this morning. After the pain began yesterday he went to walk to the bathroom and had a syncopal episode where he fell and bumped his head. He received laceration repair to his scalp in the ER and a CT of the head was negative. He denies any headache, blurred vision and/or dizziness. He denies any recent travel or sick contacts. He does not believe he ate any bad food. CT the abdomen pelvis shows some slightly dilated small bowel with surrounding inflammation along with a partial small bowel obstruction Review of Systems 2 General: Reports: 10 or more systems reviewed and unremarkable except in HPI and below Medications/Allergies Home Medications Medication Instructions Recorded Confirmed Last Taken Type aspirin 325 mg tablet 325 mg PO DAILY #90 tabs 03/12/21 12/30/23 Unknown Rx atorvastatin 40 mg tablet 40 mg PO QPM #30 tabs 03/12/21 12/30/23 Unknown Rx citalopram 20 mg tablet 20 mg PO BEDTIME 03/12/21 12/30/23 03/10/21 22:00 History losartan 25 mg tablet 25 mg PO DAILY #90 tabs 03/12/21 12/30/23 Unknown Rx Allergies Allergy/AdvReac Type Severity Reaction Status Date / Time acetaminophen [From Tylenol] Allergy Unknown Verified 12/30/23 11:46 ibuprofen [From Motrin] Allergy ADR-Numbnes Verified 12/30/23 11:46 s PFSH Acute 2 PFSH: Medical History Occlusion of left vertebral artery Cerebral atherosclerosis Anxiety TIA (transient ischemic attack) Tachycardia specifics unknown, denies abnormal heart rhythm, just fast , chronically on atenolol Hypertension Transient ischemic attack (TIA) 2009, about 12 hours of vertigo of sudden onset Surgical History History of urethrotomy or similar procedure when quite young, for slow urinary stream which remains chronic problem to a degree History of rotator cuff surgery x2 right Hx of elbow surgery x2 left Family History Mother Stroke Social History Smoking and tobacco/nicotine status: former use of tobacco/nicotine Quit status (tobacco/nicotine): has quit using Year quit tobacco: 1982 Former quit date comment: used smokeless tobacco, never smoked Second hand smoke exposure: Yes Alcohol intake: never Substance/Drug Use: never Household members: spouse Marital status: Current occupational status: employed Vitals/I&O/Wt Last Vital Signs Temp 98.8 F 12/31/23 15:54 Pulse 67 12/31/23 15:54 Resp 18 12/31/23 15:54 BP 134/89 12/31/23 15:54 Pulse Ox 91 12/31/23 15:54 O2 Del Method Room Air 12/31/23 15:54 12/31/23 12/31/23 12/31/23 06:59 14:59 22:59 Intake Total 1000 / 1050 839.583 / 729.727 1621 / 1839.583 Output Total 250 / 250 Balance 1000 / 1050 839.583 / 839.583 750 / 1589.583 Weight last 48 hrs Weight 193 lb 6 oz Weight 188 lb 3 oz Weight 195 lb Physical Exam 2 Narrative: General : Patient is well developed , no acute distress, oriented x3 Head : Normal cephalic, a-traumatic. Ears : Pinnae and external canal are normal. Hearing is normal. Eyes : PERRLA, Sclera and injection are normal. No conjunctival discharge. Nose : Mucous membranes are without erythema. Throat : buccal mucosa is normal, gums are without significant recession or hypertrophy. Lungs : Equal chest rise bilaterally, no use of accessory muscles, trachea is midline. Cor : Rate and rhythm are normal. Abdomen : Soft, ND, NT, no g/r/m Extremities : No edema, no cyanosis or clubbing, dorsalis pedis pulses are present bilaterally, non-tender to palpation of calves. Upper extremities are normal bilaterally. Back : non-tender to palpation, no CVA tenderness. Neuro : CN II - XII intact, Upper and lower extremities have equal and full strength Data 12/31/23 05:16 12/31/23 05:16 Micro: Microbiology 12/30/23 14:28 Blood Culture - Preliminary Blood NEGATIVE TO DATE 12/30/23 14:23 Blood Culture - Preliminary Blood NEGATIVE TO DATE A&P Assessment and plan (1) Gastroenteritis: (2) Partial small bowel obstruction: Plan IV fluids NPO/NGT to LIWS Ambulate 3 times daily with tube clamped for 30 minutes at a time A.m. labs Conservative management for now. If he does not get better or acutely worsens, he will need to go for diagnostic laparoscopy versus exploratory laparotomy. He is never had abdominal surgery before. I will also get some stool samples. Attestations 2 Medical Necessity Statement*: Patient requires at least 1 further night in the hospital for nasogastric suctioning and IV fluids to treat his partial small bowel obstruction Coding Level of Care Code 67841 Diagnoses Gastroenteritis K52.9 Partial small bowel obstruction K56.600
[2023-12-31] MEDS: LORazepam 2 mg/mL INJ 10 mL MDV 0.5 MG IVP (20:53)
[2023-12-31] MEDS: sodium chloride 0.9% 1,000 ML 150 ML IV (20:53)
[2024-01-01] VITALS (8 sets, daily range): BP systolic 128–154; BP diastolic 78–92; PULSE 65–92; RESP 15–18; TEMP 36.4–37.2; O2SAT 90–93
[2024-01-01 02:36] LABS: Add Urine Microscopic? NO; Charge for UA Resulting for Rev
[2024-01-01 02:49] LABS: Bilirubin Urine Neg (Negative); Blood Urine Neg (Negative); Glucose Urine UA Norm (Normal); Ketones Urine Negative (Negative); Leukocyte Esterase Urine Negative (Negative); Nitrate Urine Negative (Negative); Protein Urine Neg (Negative); Urine Appearance Clear (CLEAR); Urine Color Yellow (Yellow); Urobilinogen Urine Neg (Negative); pH Urine 5 (5-7)
[2024-01-01] MEDS: sodium chloride 0.9% 1,000 ML 150 ML IV ×3 (03:42→18:43)
[2024-01-01 05:12] LABS: Basophils % 0.1 %; Eosinophils # 0.1 10^3/uL (0.0-0.8); Eosinophils % 1.1 %; Hematocrit 38.1 % (37-53); Lymphocytes # 1.1 10^3/uL (0.8-4.8); Lymphocytes % 12.8 %; Mean Corpuscular HGB Conc 32.5 g/dL (30-55); Mean Corpuscular Hemoglobin 33.2 pg (27-33); Mean Corpuscular Volume 101.9 fl (82-101); Monocytes # 3.6 10^3/uL (0.2-0.9); Neutrophils # 3.48 10^3/uL (1.8-7.7); Neutrophils % 41.8 %; Nucleated Red Blood Cells % 0 %; Platelet Count 110 10^3/cmm (157-399); Red Blood Count 3.74 10^6/uL (3.85-5.65); Red Cell Distribution Width 12.8 % (12.1-15.1); White Blood Count 8.31 10^3/uL (3.29-11.43)
[2024-01-01 05:39] LABS: Alanine Aminotransferase 10 U/L (0-41); Albumin Level 3.8 g/dL (3.5-5.2); Alkaline Phosphatase 86 U/L (40-130); Anion Gap 13.9 (5-19); Aspartate Amino Transferase 16 U/L (0-40); Blood Urea Nitrogen 8 mg/dL (8-23); Calcium 8.6 mg/dL (8.5-10.5); Carbon Dioxide 26 mmol/L (22-29); Chloride 105 mmol/L (98-107); Creatinine Clr Calc Pharmacy 103.2788; Globulin 2.9 g/dL (1.3-4.6); Glomerular Filtration Rate 134.8 mL/min (90-130); Glucose 103 mg/dL (65-115); Osmolality Calculated 291 mOsm/kg (285-295); Potassium 3.9 mmol/L (3.5-5.1); Sodium 141 mmol/L (136-145); Total Bilirubin 1.1 mg/dL (0.15-1.2); Total Protein 6.7 g/dL (6.6-8.7)
--- NOTE | 2024-01-01 11:11 | PC.SOCIAL ---
IMM Update pg 2 of IMM updated and reviewed w/ patient. Copy provided and copy dated, initialed and placed in chart.
--- NOTE | 2024-01-01 19:27 | P.PN_ITS ---
Subjective 2 Subjective: NG output has slowed down and patient's abdominal pain has resolved. He is passing significant flatus but no bowel movement today. Denies any nausea or vomiting Vitals/I&O/Wt Last Vital Signs Temp 99.0 F 01/01/24 19:23 Pulse 74 01/01/24 19:23 Resp 18 01/01/24 19:23 BP 138/83 01/01/24 19:23 Pulse Ox 93 01/01/24 19:23 O2 Del Method Room Air 01/01/24 16:00 01/01/24 01/01/24 01/01/24 06:59 14:59 22:59 Intake Total 1000 / 3370.833 1000 / 1000 1000 / 2000 Output Total 300 / 300 Balance 1000 / 3120.833 1000 / 1000 700 / 1700 Weight last 48 hrs Weight 194 lb 1 oz Weight 193 lb 6 oz Physical Exam 2 Narrative: General: No acute distress, awake alert and oriented x 3 Abdomen: Soft, nontender, nondistended, no guarding rebound or masses Data 01/01/24 04:39 01/01/24 04:39 Micro: Microbiology 12/30/23 14:28 Blood Culture - Preliminary Blood NEGATIVE TO DATE 12/30/23 14:23 Blood Culture - Preliminary Blood NEGATIVE TO DATE A&P Assessment and plan (1) Gastroenteritis: (2) Partial small bowel obstruction: Plan IV fluids DC NGT Clear liquids Ambulate 3 times daily with tube clamped for 30 minutes at a time A.m. labs Conservative management for now. If he does not get better or acutely worsens, he will need to go for diagnostic laparoscopy versus exploratory laparotomy. He is never had abdominal surgery before. I will also get some stool samples. Attestations 2 Medical Necessity Statement*: Patient requires a least 1 more night in the hospital for diet advancement and management along with IV fluids to treat partial small bowel obstruction Coding Level of Care Code 45094 Diagnoses Gastroenteritis K52.9 Partial small bowel obstruction K56.600
[2024-01-01] MEDS: LORazepam 2 mg/mL INJ 10 mL MDV 0.5 MG IVP (21:36)
[2024-01-02] MEDS: sodium chloride 0.9% 1,000 ML 150 ML IV (01:39)
[2024-01-02 03:17] LABS: Basophils % 0.4 %; Eosinophils # 0.1 10^3/uL (0.0-0.8); Eosinophils % 1.6 %; Hematocrit 35.3 % (37-53); Lymphocytes # 1.2 10^3/uL (0.8-4.8); Lymphocytes % 21.1 %; Mean Corpuscular HGB Conc 33.7 g/dL (30-55); Mean Corpuscular Hemoglobin 33.4 pg (27-33); Mean Corpuscular Volume 99.2 fl (82-101); Mean Platelet Volume 11.4 fL (7.4-10.4); Monocytes # 2.4 10^3/uL (0.2-0.9); Neutrophils # 1.77 10^3/uL (1.8-7.7); Neutrophils % 31.8 %; Nucleated Red Blood Cells % 0 %; Platelet Count 105 10^3/cmm (157-399); Red Blood Count 3.56 10^6/uL (3.85-5.65); Red Cell Distribution Width 12.6 % (12.1-15.1); White Blood Count 5.55 10^3/uL (3.29-11.43)
[2024-01-02 03:33] LABS: Alanine Aminotransferase 8 U/L (0-41); Albumin Level 3.7 g/dL (3.5-5.2); Alkaline Phosphatase 81 U/L (40-130); Anion Gap 13.3 (5-19); Aspartate Amino Transferase 17 U/L (0-40); Blood Urea Nitrogen 8 mg/dL (8-23); Calcium 8.9 mg/dL (8.5-10.5); Carbon Dioxide 28 mmol/L (22-29); Chloride 104 mmol/L (98-107); Creatinine Clr Calc Pharmacy 103.2788; Globulin 3.2 g/dL (1.3-4.6); Glomerular Filtration Rate 134.8 mL/min (90-130); Glucose 94 mg/dL (65-115); Osmolality Calculated 290 mOsm/kg (285-295); Potassium 4.3 mmol/L (3.5-5.1); Sodium 141 mmol/L (136-145); Total Bilirubin 1.2 mg/dL (0.15-1.2); Total Protein 6.9 g/dL (6.6-8.7)
[2024-01-02 03:37] VITALS: BP 144/82; PULSE 67; RESP 18; TEMP 36.4; O2SAT 92
[2024-01-02 05:38] VITALS: PULSE 66
[2024-01-02 08:00] VITALS: BP 131/83; PULSE 64; RESP 18; TEMP 36.7; O2SAT 93
--- NOTE | 2024-01-02 09:56 | PM.DCS ---
Discharge Providers Date of Admission: 12/30/23 14:56 Date of Discharge: January 02, 2024 Attending Provider at Admission: Scott Abdalla DO Attending Provider at Discharge: Scott Abdalla DO Primary Care Provider: Dustin Foster Diagnoses at Discharge Discharge Diagnosis (1) Gastroenteritis: Status: Acute (2) Partial small bowel obstruction: Status: Acute Reason for Visit Reason for Visit: Syncope, ABD Pain Hospital Course Hospital Course Is a very pleasant 68-year-old gentleman who came into the hospital with abdominal pain nausea and vomiting. He was diagnosed with gastroenteritis and a partial small bowel obstruction. With conservative treatment, his symptoms resolved and he was tolerating a soft diet while having bowel movements prior to discharge Physical Exam Narrative: General : Patient is well developed , no acute distress, oriented x3 Head : Normal cephalic, a-traumatic. Ears : Pinnae and external canal are normal. Hearing is normal. Eyes : PERRLA, Sclera and injection are normal. No conjunctival discharge. Nose : Mucous membranes are without erythema. Throat : buccal mucosa is normal, gums are without significant recession or hypertrophy. Lungs : Equal chest rise bilaterally, no use of accessory muscles, trachea is midline. Cor : Rate and rhythm are normal. Abdomen : Soft, ND, NT, no g/r/m Extremities : No edema, no cyanosis or clubbing, dorsalis pedis pulses are present bilaterally, non-tender to palpation of calves. Upper extremities are normal bilaterally. Back : non-tender to palpation, no CVA tenderness. Neuro : CN II - XII intact, Upper and lower extremities have equal and full strength Discharge Data Studies Completed and Pending Completed Studies During Hospitalization Category Date Time Status CT abdomen pelvis wo con [id number] Stat Cat Scan 12/30/23 11:[address] head wo con* [id number] Stat Cat Scan 12/30/23 11:23 Completed XR acute abdomen series [id number] Routine Exams 12/31/23 06:00 Completed XR chest 1V portable [id number] Stat Exams 12/30/23 13:41 Completed Pending at discharge Category Date Time Status Blood Culture Stat Lab 12/30/23 14:28 Results CBC Auto Diff [Complete Blood Count w/Auto] AM LABS Lab 01/03/24 04:00 Ordered CMP [Comprehensive Metabolic Panel] AM LABS Lab 01/03/24 04:00 Ordered Laboratory Results WBC 5.55 10^3/uL (3.29-11.43) 01/02/24 03:00 RBC 3.56 10^6/uL (3.85-5.65) L 01/02/24 03:00 Hgb 11.90 g/dL (11.27-16.99) 01/02/24 03:00 Hct 35.3 % (37-53) L 01/02/24 03:00 MCV 99.2 fl (82-101) 01/02/24 03:00 MCH 33.4 pg (27-33) H 01/02/24 03:00 MCHC 33.7 g/dL (30-55) 01/02/24 03:00 RDW 12.6 % (12.1-15.1) 01/02/24 03:00 Plt Count 105 10^3/cmm (157-399) L 01/02/24 03:00 MPV 11.4 fL (7.4-10.4) H 01/02/24 03:00 Neut % (Auto) 31.8 % 01/02/24 03:00 Lymph % (Auto) 21.1 % 01/02/24 03:00 [place] % (Auto) 44.0 % 01/02/24 03:00 Eos % (Auto) 1.6 % 01/02/24 03:00 Baso % (Auto) 0.4 % 01/02/24 03:00 Neut # (Auto) 1.77 10^3/uL (1.8-7.7) L 01/02/24 03:00 Lymph # (Auto) 1.2 10^3/uL (0.8-4.8) 01/02/24 03:00 [place] # (Auto) 2.4 10^3/uL (0.2-0.9) H 01/02/24 03:00 Eos # (Auto) 0.1 10^3/uL (0.0-0.8) 01/02/24 03:00 Baso # (Auto) 0.0 10^3/uL (0.0-0.1) 01/02/24 03:00 Nucleated RBC % (auto) 0 % 01/02/24 03:00 Nucleated RBCs # 0.0 /100WBC 01/02/24 03:00 Sodium 141 mmol/L (136-145) 01/02/24 03:00 Potassium 4.3 mmol/L (3.5-5.1) 01/02/24 03:00 Chloride 104 mmol/L (98-107) 01/02/24 03:00 Carbon Dioxide 28 mmol/L (22-29) 01/02/24 03:00 Anion Gap 13.3 (5-19) 01/02/24 03:00 BUN 8 mg/dL (8-23) 01/02/24 03:00 Creatinine 0.6 mg/dL (0.7-1.2) L 01/02/24 03:00 GFR Calculation 134.8 mL/min (90-130) H 01/02/24 03:00 Glucose 94 mg/dL (65-115) 01/02/24 03:00 Calculated Osmolality 290 mOsm/kg (285-295) 01/02/24 03:00 Lactic Acid 1.7 mmol/L (0.5-2.2) 12/30/23 11:42 Calcium 8.9 mg/dL (8.5-10.5) 01/02/24 03:00 Total Bilirubin 1.2 mg/dL (0.15-1.2) 01/02/24 03:00 AST 17 U/L (0-40) 01/02/24 03:00 ALT 8 U/L (0-41) 01/02/24 03:00 Alkaline Phosphatase 81 U/L (40-130) 01/02/24 03:00 Troponin T Baseline 9 ng/L (0-15) 12/30/23 11:42 Troponin T 120 Minute 7.26 ng/L (0-15) 12/30/23 14:28 Delta Troponin T -1.74 ABS# (0-10) L 12/30/23 14:28 Troponin T Hi Sens 6Hr 7.81 ng/L (0-15) 12/30/23 19:44 Troponin T Hi Sens 6Hr Delta -1.19 ng/L (0-12) L 12/30/23 19:44 Total Protein 6.9 g/dL (6.6-8.7) 01/02/24 03:00 Albumin 3.7 g/dL (3.5-5.2) 01/02/24 03:00 Globulin 3.2 g/dL (1.3-4.6) 01/02/24 03:00 Urine Color Yellow (Yellow) 01/01/24 02:30 Urine Appearance Clear (CLEAR) 01/01/24 02:30 Urine pH 5 (5-7) 01/01/24 02:30 Ur Specific [place] 1.020 (1.005-1.030) 01/01/24 02:30 Urine Protein Neg (Negative) 01/01/24 02:30 Urine Glucose (UA) Norm (Normal) 01/01/24 02:30 Urine Ketones Negative (Negative) 01/01/24 02:30 Urine Blood Neg (Negative) 01/01/24 02:30 Urine Nitrate Negative (Negative) 01/01/24 02:30 Urine Bilirubin Neg (Negative) 01/01/24 02:30 Urine Urobilinogen Neg mg/dL (Negative) 01/01/24 02:30 Ur Leukocyte Esterase Negative (Negative) 01/01/24 02:30 Procedures Performed None Vitals Last Vital Signs Temp 98.0 F 01/02/24 08:00 Pulse 64 01/02/24 08:00 Resp 18 01/02/24 08:00 BP 131/83 01/02/24 08:00 Pulse Ox 93 01/02/24 08:00 O2 Del Method Room Air 01/02/24 08:00 Discharge Plan Discharge Patient Disposition: Home Condition: Stable Prescriptions: Continued citalopram 20 mg Tablet 20 mg PO BEDTIME atorvastatin 40 mg tablet 40 mg PO QPM Qty: 30 0RF aspirin 325 mg tablet 325 mg PO DAILY Qty: 90 0RF losartan 25 mg tablet 25 mg PO DAILY Qty: 90 0RF Discharge Orders: Discharge Order (Routine); Ordered 01/02/24 Ordered By: Scott Abdalla Referrals: Scott Abdalla DO [Physician] - 01/06/24 1:20 pm Dustin Foster [Primary Care Provider] - 01/04/24 10:00 am Discharge Diet: Advance as tolerated Discharge Activity: Resume usual activity Patient Instructions: Opioid Safety Activity Restrictions/Additional Instructions: Colon cancer was the leading cause of cancer in Americans before colonoscopies. If you adhere to a proper colon cancer screening regimen, your chances of getting colon cancer go down to 90%. Discharge Attestations Time Spent in Discharge Care*: less than 30 min Quality Metrics Clinical Quality Measures [ No reported AMI, CVA or VTE this stay] Coding Level of Care Code Acute Code for Chg Fwd Diagnoses Gastroenteritis K52.9 Partial small bowel obstruction K56.600
[2024-01-02 12:38] VITALS: BP 131/83; PULSE 64; RESP 18; TEMP 36.7; O2SAT 93
== END 2024-01-02 12:48 | disposition home or self-care (01) | DRG 390 ==
LOC: ER 12:37 → MEDSURG 14:56
PROVIDERS: Admitting Provider Surgery; Emergency Provider Family Medicine; PCP Physician Assistant Medical; Visit Provider Surgery
DX: K56.600 Partial intestinal obstruction, unspecified as to cause (principal); K52.9 Noninfective gastroenteritis and colitis, unspecified; F41.9 Anxiety disorder, unspecified; S01.01XA Laceration without foreign body of scalp, initial encounter; W18.39XA Other fall on same level, initial encounter; R55 Syncope and collapse
CPT/HCPCS: 12002; 36415; 70450; 71045; 74022; 74176; 80053; 81003; 83605; 84484; 85025; 87040; 93005; 96365; 99285; J2060; J2270; J2405; J2543; J7030

== ENCOUNTER → 2024-01-06 13:10 | Outpatient (BNVA) | payer MEDICARE, OTHER, SELFPAY | PROVIDERS: PCP Physician Assistant Medical; Visit Provider Surgery | DX: K52.9 Noninfective gastroenteritis and colitis, unspecified (principal) | CPT/HCPCS: 99214 ==